=== PATIENT | female | born 1970 | race African-American/Black ===

== ENCOUNTER 2016-07-01 22:54 | Emergency (ER) | payer OTHER ==
[~2016-07-01] VITALS: Ht 162.6 cm; Wt 68.0 kg
[2016-07-01 23:42] LABS: HEMATOCRIT 33.9 % (37.0-47.0); HEMOGLOBIN 11.1 gm/dL (12.0-15.0); MCHC 32.7 g/dL (28.0-37.0); MCV 88.6 fL (80.0-100.0); PLATELET COUNT 267 thou/uL (150-400); RBC 3.82 mil/uL (4.20-5.00); RDW 19.7 % (10.5-14.5)
[2016-07-01 23:47] LABS: MANUAL DIFF YES
[2016-07-01 23:50] LABS: CALCIUM 9.2 mg/dL (8.5-10.1); CREATININE 1.1 mg/dL (0.6-1.0); POTASSIUM 3.7 mmol/L (3.5-5.1)
[2016-07-01 23:55] LABS: TOTAL BILIRUBIN 0.5 mg/dL (<0.1-1.0); TOTAL PROTEIN 8.2 g/dL (6.4-8.2)
[2016-07-01 23:59] LABS: PROTIME 10.5 Seconds (9.3-11.4)
[2016-07-02 00:23] LABS: ABSOLUTE NEUTROPHILS 7.1 thou/uL (1.4-8.2); ANISOCYTOSIS 2+; MACROCYTES 1+; MICROCYTES 1+; POLYCHROMASIA 1+; TOTAL CELL COUNT 100
[2016-07-02] MEDS ORDERED: NORCO 10-325 T1 EACH PO (01:03)
[2016-07-02 01:43] VITALS: BP 122/55
== END 2016-07-02 01:44 | disposition home or self-care (01) ==
LOC: ER 22:54
PROVIDERS: Nurse Practitioner Family
DX: T74.21XA Adult sexual abuse, confirmed, initial encounter (principal); S00.83XA Contusion of other part of head, initial encounter; S20.211A Contusion of right front wall of thorax, initial encounter; S80.12XA Contusion of left lower leg, initial encounter; S80.11XA Contusion of right lower leg, initial encounter; S00.01XA Abrasion of scalp, initial encounter; F10.99 Alcohol use, unspecified with unspecified alcohol-induced disorder; Y04.2XXA Assault by strike against or bumped into by another person, initial encounter